=== PATIENT | female | born 1945 | race Caucasian/White ===

== ENCOUNTER 2019-05-12 08:53 | Day surgery (SDC) | payer OTHER ==
[~2019-05-12] VITALS: Ht 167.6 cm; Wt 74.4 kg
[~2019-05-12 08:53] MED LIST: ASPIR-LOW81 MG PO; LISINOPRIL20 MG PO; MULTIVITAMINS1 EAC7 PO
[2019-05-12] MEDS ORDERED: HYDROCHLOROTH12.5 MG PO (09:15)
--- NOTE | 2019-05-12 10:30 | NUR ---
05/12/19 1030 Una Ramirez 1022- PT ARRIVES TO PACU AROUSABLE TO VOICE, FALLS INSTANTLY BACK TO SLEEP WHEN NOT BEING STIMULATED. RESP EVEN AND UNLABORED. OXYGEN SAT HIHG 90'S TO 100% ON 2L VIA MASK. 1030- PT PASSING FLATUS.
--- NOTE | 2019-05-12 11:39 | NUR ---
1120 PT CAME TO ROOM FROM PACU DUE TO LOW BP AND PT NOT BEING ABLE TO SIT UP SHE WAS TOO DIZZY IN PACU. CALLED DR ANDRE HE ORDERED 1L LR TO BE GIVEN. BEFORE SHE CAN GO HOME.
--- NOTE | 2019-05-13 06:08 | OR ---
[facility] [address] [place], [place] [address] Signed DATE OF OPERATION: 05/12/2019 SURGEON: Donnie Andre MD PREOPERATIVE DIAGNOSIS: Screening. POSTOPERATIVE DIAGNOSES: 1. Moderate gonzáles-diverticulosis. 2. Minimal internal anal skin tag x1. PROCEDURE: Colonoscopy without biopsy. ESTIMATED BLOOD LOSS: None. INDICATIONS: Karolyn is a 73-year-old lady, asked to see me for her initial screening colonoscopy. She has no lower GI complaints. There is no family history of colon cancer or polyps. I gave Karolyn, a pamphlet in the office on colonoscopy. We looked at that together in detail. She understands the nature of the test along with the risks including, but not limited to gas, bloating, crampy abdominal pain, bleeding, perforation requiring surgery, and missed diagnosis. We also discussed the need for IV conscious sedation. She had expressed understanding and wished to proceed. PROCEDURE NOTE: Karolyn was taken into our endoscopy suite and placed in the left lateral decubitus position. She was given a total of 8 mg of Versed and 150 mcg of fentanyl to cover the case. A digital rectal exam was performed and this was unremarkable. The adult colonoscope was inserted and advanced under direct visualization of camera. Karolyn is tall with long arms and legs. She has a long somewhat redundant colon. She needed some extra sedation and abdominal compression as we came around the hepatic flexure and down into the cecum itself. Her prep was quite good. We could easily see the appendiceal orifice and the ileocecal valve. The scope was slowly withdrawn. She does have moderate gonzáles-diverticulosis. We saw no evidence of any polyps. The rectum was unremarkable. Upon retroflexion of the scope, she had just a tiny single internal anal skin tag. After this, the gas was suctioned out. The colonoscope removed. Karolyn tolerated the procedure quite well. Electronically Signed By: DONNIE ANDRE MD 05/13/19 0608 PATIENT NAME: KAROLYN PERSAUD OPERATIVE REPORT DATE OF : 47 REPORT #: [id number] PHYSICIAN: DONNIE ANDRE MD PCP: RICKY AZEVEDO REPORT IS CONFIDENTIAL AND NOT TO BE RELEASED WITHOUT AUTHORIZATION [facility] [address] [place] [address] Signed RECOMMENDATIONS: Karolyn is welcome to return in 10 years for screening colonoscopy so long as her health holds up. Donnie Andre MD ALB/MODL /[id number] cc: Ricky Andre MD Copies: RICKY AZEVEDO ANDREW L MD ~ Electronically Signed By: DONNIE ANDRE MD 05/13/19 0608 PATIENT NAME: KAROLYN PERSAUD OPERATIVE REPORT DATE OF : 47 REPORT #: [id number] PHYSICIAN: DONNIE ANDRE MD PCP: RICKY AZEVEDO REPORT IS CONFIDENTIAL AND NOT TO BE RELEASED WITHOUT AUTHORIZATION
== END 2019-05-12 13:09 | disposition home or self-care (01) ==
LOC: OPS 08:53 → DS 08:53 → OPS 09:45
PROVIDERS: Colon & Rectal Surgery
PROC: 0DJD8ZZ Inspection of Lower Intestinal Tract, Via Natural or Artificial Opening Endoscopic (ICD-10-PCS; principal; 2019-05-12 10:30)
DX: Z12.11 Encounter for screening for malignant neoplasm of colon (principal); K64.4 Residual hemorrhoidal skin tags; K57.30 Diverticulosis of large intestine without perforation or abscess without bleeding; I10 Essential (primary) hypertension; Z79.82 Long term (current) use of aspirin; Z79.899 Other long term (current) drug therapy; Z88.5 Allergy status to narcotic agent
CPT/HCPCS: 99153; G0500; J2250; J3010; J7121

== ENCOUNTER 2023-01-27 18:19 | Emergency (ER) | payer OTHER, BC ==
[~2023-01-27] VITALS: Ht 167.6 cm; Wt 79.0 kg
[~2023-01-27 18:19] MED LIST changes: +DILTIAZEM 24HR120 MG PO; +ELIQUIS5 MG PO; +FISH OIL 1,0001 EAC6 PO; +HYDROCHLOROTH12.5 MG PO
--- OUTSIDE RECORDS SUMMARY | 2023-01-27 18:27 | XMS ---
PreManage Notification: KANIKA PERSAUD Security Manager Fitness Events No recent Security Events currently on file CRITERIA MET - [facility] - 2 Visits in 30 Days CARE PROVIDERS There are no care providers on record at this time. Olegario has no Care Guidelines for this patient. Kathy VISIT COUNT (12 MO.) [address] Marlene Weeks (Yvan Santoro) TOTAL 4 NOTE: Visits indicate total known visits. ED/[facility] VISIT TRACKING (12 MO.) 01/27/2023 18:20 [facility] TYPE: Emergency COMPLAINT: - ANIMAL BITE 01/14/2023 19:59 [facility] OR TYPE: Emergency COMPLAINT: - HEART PALPATATIONS DIAGNOSES: - Allergy status to narcotic agent - terminal operations supervisor (current) use of anticoagulants - terminal operations supervisor (current) use of aspirin - Other terminal make up operator (current) drug therapy - Palpitations - Unspecified atrial fibrillation 01/09/2023 13:10 [facility] Yvan CISNEROS ([place]) TYPE: Emergency DIAGNOSES: - Chronic kidney disease, stage 2 (mild) - Essential (primary) hypertension - Other persistent atrial fibrillation - Paroxysmal atrial fibrillation - Heart Palpitations - irregular heart beat 12/26/2022 11:56 [facility] Yvan CISNEROS ([place]) TYPE: Emergency DIAGNOSES: - Cough, unspecified - Dyspnea, unspecified - pain in lungs - Shortness of Breath INPATIENT VISIT TRACKING (12 MO.) [facility] TYPE: Surgical Services DIAGNOSES: - Chronic kidney disease, stage 2 (mild) - Essential (primary) hypertension - Other persistent atrial fibrillation - Paroxysmal atrial fibrillation [email or web address]
[2023-01-27] MEDS ORDERED: CEPHALEXIN500 M1 PO (19:52)
[2023-01-27 20:00] VITALS: BP 145/80
== END 2023-01-27 20:00 | disposition home or self-care (01) ==
LOC: ED 18:19
DX: S61.411A Laceration without foreign body of right hand, initial encounter (principal); W55.01XA Bitten by cat, initial encounter; Z23 Encounter for immunization; I48.91 Unspecified atrial fibrillation; Z79.01 Long term (current) use of anticoagulants; Z79.899 Other long term (current) drug therapy; Z88.5 Allergy status to narcotic agent
CPT/HCPCS: 12002; 90471; 90715; 99283; A9270

== ENCOUNTER 2023-01-28 06:36 | Emergency (ER) | payer OTHER ==
[~2023-01-28] VITALS: Ht 167.6 cm; Wt 79.0 kg
[~2023-01-28 06:36] MED LIST changes: +CEPHALEXIN500 M1 PO
--- OUTSIDE RECORDS SUMMARY | 2023-01-28 06:39 | XMS ---
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 Olegario has no Care Guidelines for this patient. Kathy VISIT COUNT (12 MO.) 3 [facility] [place] [facility] [address] [place] [address] Marlene Weeks (Yvan Santoro) TOTAL 5 NOTE: Visits indicate total known visits. ED/C VISIT TRACKING (12 MO.) 01/28/2023 06:36 [facility] [place] TYPE: Emergency COMPLAINT: - R HAND/ARM WOUND/BLEEDING 01/27/2023 18:20 [facility] [place] TYPE: Emergency COMPLAINT: - ANIMAL BITE 01/14/2023 19:59 [facility] [place] TYPE: Emergency COMPLAINT: - HEART PALPATATIONS DIAGNOSES: - Allergy status to narcotic agent - senior care (current) use of anticoagulants - watermelon harvesting supervisor (current) use of aspirin - Other middle or intermediate school principal (current) drug therapy - Palpitations - Unspecified atrial fibrillation 01/09/2023 13:10 [facility] Desi CISNEROS (Yvan Santoro) TYPE: Emergency DIAGNOSES: - Chronic kidney disease, stage 2 (mild) - Essential (primary) hypertension - Other persistent atrial fibrillation - Paroxysmal atrial fibrillation - Heart Palpitations - irregular heart beat 12/26/2022 11:56 [facility] Yvan CISNEROS (Yvan Santoro) TYPE: Emergency DIAGNOSES: - Cough, unspecified - Dyspnea, unspecified - pain in lungs - Shortness of Breath INPATIENT VISIT TRACKING (12 MO.) 01/09/2023 13:10 [facility] Yvan CISNEROS ([place]van Santoro) TYPE: Surgical Services DIAGNOSES: - Chronic kidney disease, stage 2 (mild) - Essential (primary) hypertension - Other persistent atrial fibrillation - Paroxysmal atrial fibrillation [email or web address]
[2023-01-28 09:25] VITALS: BP 141/73
== END 2023-01-28 09:24 | disposition home or self-care (01) ==
LOC: ED 06:36
DX: S61.431A Puncture wound without foreign body of right hand, initial encounter (principal); X58.XXXA Exposure to other specified factors, initial encounter; I48.91 Unspecified atrial fibrillation; Z88.5 Allergy status to narcotic agent; Z79.899 Other long term (current) drug therapy
CPT/HCPCS: 99283

== ENCOUNTER 2024-06-04 21:58 | Emergency (ER) | payer OTHER, MEDICARE ==
[~2024-06-04] VITALS: Ht 167.6 cm; Wt 71.0 kg
[2024-06-05] MEDS ORDERED: ACETAMINOPHEN 500 MG TAB PO ONE (00:15)
[2024-06-05 02:11] VITALS: BP 104/62
== END 2024-06-05 02:00 | disposition home or self-care (01) ==
LOC: ED 21:58
DX: S70.02XA Contusion of left hip, initial encounter (principal); W18.30XA Fall on same level, unspecified, initial encounter; Z79.899 Other long term (current) drug therapy; Z88.5 Allergy status to narcotic agent
CPT/HCPCS: 73552; 99283; A9270